=== PATIENT | female | born 1960 | race Caucasian/White ===

== ENCOUNTER 2019-02-17 12:20 | Day surgery (SDC) | payer OTHER ==
[~2019-02-17 12:20] MED LIST: NABUMETONE500 MG PO; PERCOCET 5/3251 TAB PO
== END 2019-02-17 17:20 | disposition home or self-care (01) ==
LOC: AMB-ENDOS 12:20
DX: D12.0 Benign neoplasm of cecum (principal); D12.2 Benign neoplasm of ascending colon; D12.3 Benign neoplasm of transverse colon; K64.8 Other hemorrhoids

== ENCOUNTER → 2021-08-31 08:00 | Outpatient (CLI) | payer OTHER ==
[~2021-08-31] VITALS: Ht 157.5 cm; Wt 71.7 kg
[~2021-08-31 08:00] MED LIST changes: +APRESOLINE 10MG10 MG PO; +CARDIZEM CD300 MG PO; +CARDURA XL4 MG PO; +COZAAR100 MG PO; +GLIMEPIRIDE2 MG; +HUMULIN 70100 UNIT/2 SUBCUTANEO; +PROTONIX20 MG PO; +TOPROL XL50 M1 PO; +ZETIA10 MG PO; +ZYLOPRIM100 M1 PO
== END | disposition home or self-care (01) ==
LOC: LAB 08:00 → EDSTATUS 09-05 07:00 → SURH 09-05 07:00
PROVIDERS: ATTEND Orthopaedic Surgery
DX: Z20.822 Contact with and (suspected) exposure to COVID-19 (principal)

== ENCOUNTER 2022-02-15 07:45 | Inpatient (IN) | payer OTHER ==
[~2022-02-15] VITALS: Ht 157.5 cm; Wt 76.2 kg
[2022-02-23] MEDS ORDERED: PERCOCET 5-3251 EACH PO (08:01)
[2022-02-23] MEDS ORDERED: ELIQUIS2.5 MG PO (08:01)
[2022-02-23] MEDS ORDERED: CEFADROXIL500 MG PO (08:01)
== END 2022-02-23 13:56 | DRG 467 ==
LOC: O/R 02-20 07:20 → SURH 02-20 07:20 → SURG 02-20 07:45 → SURH 02-20 17:25
PROVIDERS: ADMIT Orthopaedic Surgery; ATTEND Orthopaedic Surgery
PROC: 0SPD0JZ Removal of Synthetic Substitute from Left Knee Joint, Open Approach (ICD-10-PCS; 2022-02-20)
PROC: 0SND4ZZ Release Left Knee Joint, Percutaneous Endoscopic Approach (ICD-10-PCS; 2022-02-20)
PROC: 0SBD4ZZ Excision of Left Knee Joint, Percutaneous Endoscopic Approach (ICD-10-PCS; 2022-02-20)
PROC: 0SRD0JZ Replacement of Left Knee Joint with Synthetic Substitute, Open Approach (ICD-10-PCS; principal; 2022-02-20 12:45)
PROC: 30233N1 Transfusion of Nonautologous Red Blood Cells into Peripheral Vein, Percutaneous Approach (ICD-10-PCS; 2022-02-21)
DX: M17.12 Unilateral primary osteoarthritis, left knee (principal); T84.013A Broken internal left knee prosthesis, initial encounter; T84.033A Mechanical loosening of internal left knee prosthetic joint, initial encounter; D62 Acute posthemorrhagic anemia; M25.662 Stiffness of left knee, not elsewhere classified; M85.462 Solitary bone cyst, left tibia and fibula; Y84.9 Medical procedure, unspecified as the cause of abnormal reaction of the patient, or of later complication, without mention of misadventure at the time of the procedure; I10 Essential (primary) hypertension; E11.9 Type 2 diabetes mellitus without complications; Z20.822 Contact with and (suspected) exposure to COVID-19